=== PATIENT | female | born 1955 | race African-American/Black ===

== ENCOUNTER 2016-08-02 09:29 | Day surgery (SDC) | payer BC ==
--- NOTE | 2016-07-27 10:33 | HISTORY AND PHYSICAL E ---
History and Physical NAME: SIVAN BRISENO : 1955 AGE: 61Y ADMITTED: 08/02/2016 ROOM: REFERRING PHYSICIAN: Dr. Carey HISTORY: The patient is known to me. I saw her in 2010. Colonoscopy shows no polyps and mild external hemorrhoids. Now she is for upper scope. I did colonoscopy in 2010, at that time referred by Dr. James Fried. The patient did have colonoscopy. REVIEW OF SYSTEMS: CARDIAC: Hypertension. She does have reflux. PAST SURGICAL HISTORY: 1. Cholecystectomy. 2. Oophorectomy. 3. Tubal ligation. SOCIAL HISTORY: She does not smoke and does not drink. PHYSICAL EXAMINATION: VITAL SIGNS: Blood pressure 130/80, pulse 80, respirations 18, temp 98. HEENT: Normal. NECK: Supple. LUNGS: Clear. ABDOMEN: Soft. NEUROLOGIC: Negative. PAST MEDICAL HISTORY: I saw the patient again in 2010 with epigastric abdominal pain. Upper scope showed active chronic gastritis, H. pylori positive. CONCLUSIONS: Upper scope is showing gastritis, H. pylori positive. At this time, the patient is for upper endoscopy. She does have gastric polyp, gastritis, esophagitis, and duodenitis and continues to have H. pylori positive. So conclusion is upper scope with H. pylori, gastritis. The patient was treated with Pylera on 04/27/2015; a course of 10 days Pylera was given. At this time the patient is for upper scope. DICTATING PHYSICIAN: LUCY CARLSON M.D. [id number] PHY#: [id number] ID: [id number] JOB#: [id number] ACCT: [id number] cc:PHILIP ACREY M.D., MAHMOUD M.D. >
[~2016-08-02 09:29] MED LIST: EPINEPHRINE INJ 1 MG/10 ML DISP.SYRIN ONE; FLUMAZENIL INJ 0.5 MG/5 ML VIAL IV ONE; GLYCOPYRROLATE INJ 0.4 MG/2 ML VIAL ONE; NALOXONE HCL INJ/PF 0.4 MG/1 ML SDV ONE; ONDANSETRON HCL INJ/PF 4 MG/2 ML SDV ONE; PROMETHAZINE HCL INJ 25 MG/1 ML VIAL ONE
[2016-08-02] MEDS: MIDAZOLAM 2 MG/2 ML INJ ONE ×3 (10:10→10:16)
[2016-08-02] MEDS: FENTANYL CITRATE INJ/PF 100 MCG/2 ML AMPUL ONE ×2 (10:12→10:18)
[2016-08-02 11:19] LABS: ABSOLUTE EOSINOPHILS # (AUTO) 0.1 10^3/uL (0.0-0.6); ABSOLUTE MONOCYTES (AUTO) 0.5 10^3/uL (0.1-1.4); ABSOLUTE NEUT (AUTO) 2.6 10^3/uL (1.7-8.2); BASOPHILS % (AUTO) 0.8 % (0-2); EOSINOPHILS % (AUTO) 2.5 % (0-6); HEMATOCRIT 33.9 % (36.0-47.0); HEMOGLOBIN 11.1 g/dL (12.0-15.5); HGB HCT DIFFERENCE -0.6; LYMPHOCYTES % (AUTO) 24.5 % (13-45); MEAN CORPUSCULAR HEMOGLOBIN 28.5 pg (27.0-33.4); MEAN CORPUSCULAR HGB CONC 32.8 g/dL (32.0-36.0); MEAN CORPUSCULAR VOLUME 87 fl (80-97); MONOCYTES % (AUTO) 12.1 % (3-13); RED BLOOD COUNT 3.92 10^6/uL (3.72-5.28); SEGMENTED NEUTROPHILS % (AUTO) 60.1 % (42-78); WHITE BLOOD COUNT 4.3 10^3/uL (4.0-10.5)
[2016-08-02 11:20] VITALS: BP 107/72
--- NOTE | 2016-08-02 15:21 | DISCHARGE SUMMARY E ---
Discharge Summary NAME: SIVAN BRISENO : 1955 AGE: 61Y ADMITTED: 08/02/2016 DISCHARGED: 08/02/2016 HISTORY: The patient is a 61-year-old female who has a history of H. pylori, gastritis, underwent upper endoscopy today showing no ulcers, no malignancy. She did have mild esophagitis, mild gastritis, mild duodenitis. Gastric biopsy obtained for followup history of H. pylori. Patient did have colonoscopy in 2010 that shows no polyps, mild external hemorrhoids. DISCHARGE PLAN: Soft diet. Awaiting biopsy results. Patient did receive treatment for H. pylori with Pylera on 04/27/2015. Today, underwent upper endoscopy, which shows no ulcers, no malignancy. Hold aspirin, nonsteroidal. Followup office visit in the next few days. DICTATING PHYSICIAN: LUCY CARLSON M.D. [id number] PHY#: [id number] ID: [id number] JOB#: [id number] ACCT: [id number] cc:PHILIP CAREY M.D., MAHMOUD M.D. >
--- NOTE | 2016-08-02 15:22 | OPERATIVE REPORT E ---
Operative Report NAME: SIVAN BRISENO : 1955 AGE: 61Y DATE OF SURGERY: 08/02/2016 ROOM: PREOPERATIVE DIAGNOSES: 1. Gastritis. 2. Abdominal pain. 3. History of H. pylori. POSTOPERATIVE DIAGNOSES: 1. Gastritis. 2. Mild esophagitis. 3. Mild duodenitis. PROCEDURE: 1. Esophagoscopy. 2. Gastroscopy. 3. Duodenoscopy. SURGEON: LUCY CARLSON M.D. ANESTHESIA: Versed 4 and fentanyl 100. TISSUE REMOVED OR ALTERED: Gastric biopsy. DESCRIPTION OF PROCEDURE: Baby scope passed under guided vision. No difficulties. Esophagoscopy junction at 36 cm. Mild esophagitis. Gastroscopy: Diffuse mild gastritis. Biopsy obtained for H. pylori. Duodenoscopy: Mild duodenitis. CONCLUSIONS: 1. No ulcers. No bleeding. 2. Mild gastritis. 3. History of H. pylori. 4. Mild esophagitis. 5. Mild duodenitis. Patient tolerated procedure well. Discharged to her room in stable condition. DICTATING PHYSICIAN: LUCY CARLSON M.D. [id number] PHY#: [id number] ID: [id number] JOB#: [id number] ACCT: [id number] cc:PHILIP CAREY M.D., MAHMOUD M.D. >
== END 2016-08-02 11:40 | disposition home or self-care (01) ==
LOC: END 09:29
PROVIDERS: ATTEND Specialist
PROC: 0DB68ZX Excision of Stomach, Via Natural or Artificial Opening Endoscopic, Diagnostic (ICD-10-PCS; principal; 2016-08-02 10:00)
DX: K21.9 Gastro-esophageal reflux disease without esophagitis (principal); K29.70 Gastritis, unspecified, without bleeding; K29.50 Unspecified chronic gastritis without bleeding; B96.81 Helicobacter pylori [H. pylori] as the cause of diseases classified elsewhere; K29.80 Duodenitis without bleeding; I10 Essential (primary) hypertension
CPT/HCPCS: 43239; 36415; 85025; 88342 ×2; 88305 ×2; J2250; J3010; J2405; J0171; J2310; J2550; J3490

== ENCOUNTER → 2016-11-09 | Outpatient (CLI) | payer BC | LOC: WI 12:50 | PROVIDERS: ATTEND Internal Medicine | DX: R92.0 Mammographic microcalcification found on diagnostic imaging of breast (principal) | CPT/HCPCS: G0206-52 ==

== ENCOUNTER → 2016-11-16 | Day surgery (SDC) | payer BC ==
[~2016-11-16] MED LIST changes: -EPINEPHRINE INJ 1 MG/10 ML DISP.SYRIN ONE; -FLUMAZENIL INJ 0.5 MG/5 ML VIAL IV ONE; -GLYCOPYRROLATE INJ 0.4 MG/2 ML VIAL ONE; +LIDOCAINE 1%/EPINEPHRINE INJ 20 ML VIAL ONE; -NALOXONE HCL INJ/PF 0.4 MG/1 ML SDV ONE; -ONDANSETRON HCL INJ/PF 4 MG/2 ML SDV ONE; -PROMETHAZINE HCL INJ 25 MG/1 ML VIAL ONE
== END ==
LOC: RAD 09:58 → EDSTATUS 14:29
PROVIDERS: ATTEND Surgery
PROC: 08RJ3JZ Replacement of Right Lens with Synthetic Substitute, Percutaneous Approach (ICD-10-PCS; principal; 2016-11-16)
DX: N60.11 Diffuse cystic mastopathy of right breast (principal); R92.0 Mammographic microcalcification found on diagnostic imaging of breast; M19.90 Unspecified osteoarthritis, unspecified site; Z96.653 Presence of artificial knee joint, bilateral; I10 Essential (primary) hypertension; Z87.891 Personal history of nicotine dependence; Z79.899 Other long term (current) drug therapy
CPT/HCPCS: 88342 ×2; 88341 ×2; 88305 ×2; 19081; J3490

== ENCOUNTER 2017-03-13 11:54 | Emergency (ER) | payer BC ==
--- NOTE | 2017-03-13 13:16 | ER Document Report ---
HPI - HPI Patient complains to provider of: dental pain Onset: Other - 3 days Onset/Duration: Persistent Quality of pain: Achy Pain Level: 4 Context: Patient presents complaining of dental pain to right lower jaw for the past 3 days. Patient does have a dentist and did see them regarding this recently. Patient states that they have her under treatment plan and are wanting to fix other teeth prior to fixing this tooth. Patient denies any fever or facial swelling. Patient does complain of some right ear pain and decreased hearing to her right ear. Associated Symptoms: Earache, Other - dental pain. denies: Fever Exacerbated by: Denies Relieved by: Denies Similar symptoms previously: Yes Recently seen / treated by doctor: No - ROS ROS below otherwise negative: Yes Systems Reviewed and Negative: Yes All other systems reviewed and negative - CONSTITUTIONAL Constitutional: DENIES: Fever, Chills - EENT EENT: REPORTS: Ear Pain Notes: dental pain - CARDIOVASCULAR Cardiovascular: DENIES: Chest pain - RESPIRATORY Respiratory: DENIES: Coughing - GASTROINTESTINAL Gastrointestinal: DENIES: Nausea, Patient vomiting - REPRODUCTIVE Reproductive: DENIES: : - MUSCULOSKELETAL Musculoskeletal: DENIES: Back Pain, Neck Pain - DERM Skin Color: Normal Skin Problems: None Past Medical History - General Information source: Patient - Social History Smoking Status: Never Smoker Chew tobacco use (# tins/day): No Frequency of alcohol use: None Drug Abuse: None Occupation: house keeping Family History: Reviewed & Not Pertinent Patient has suicidal ideation: No Patient has homicidal ideation: No - Past Medical History Cardiac Medical History: Reports: Hx Hypertension Denies: Hx Atrial Fibrillation, Hx Congestive Heart Failure, Hx Coronary Artery Disease, Hx Heart Attack, Hx Hypercholesterolemia, Hx Peripheral Vascular Disease, Hx Heart Murmur Pulmonary Medical History: Denies: Hx Asthma, Hx Bronchitis, Hx COPD, Hx Pneumonia Neurological Medical History: Denies: Hx Cerebrovascular Accident, Hx Seizures Renal/ Medical History: Reports: Hx Ovarian Cysts - s/p RT S&O. Denies: Hx End Stage Renal Disease, Hx Kidney Stones, Hx Peritoneal Dialysis, Hx Pelvic Inflammatory Disease Malignancy Medical History: Denies: Hx Breast Cancer, Hx Cervical Cancer, Hx Ovarian Cancer Musculoskeltal Medical History: Reports Hx Arthritis, Denies Hx Fibromyalgia, Denies Hx Muscular Dystrophy Traumatic Medical History: Denies: Hx Fractures Past Surgical History: Reports: Hx Cholecystectomy, Hx Orthopedic Surgery - bilateral knees, Hx Tonsillectomy - as child, Hx Tubal Ligation. Denies: Hx Appendectomy, Hx Bowel Surgery, Hx Section, Hx Coronary Artery Bypass Graft, Hx Gastric Bypass Surgery, Hx Herniorrhaphy, Hx Hysterectomy, Hx Mastectomy, Hx Pacemaker - Immunizations Hx Diphtheria, Pertussis, Tetanus Vaccination: Yes Hx Pneumococcal Vaccination: 04/09/14 Vertical Provider Document - CONSTITUTIONAL Agree With Documented VS: Yes Exam Limitations: No Limitations General Appearance: WD/WN, No Apparent Distress - INFECTION CONTROL TRAVEL OUTSIDE OF THE [place] IN LAST 30 DAYS: No - HEENT HEENT: Atraumatic, Normocephalic Mouth Diagram: 1 - Tenderness, dental decay, no gingival abscess, no sublingual or submental swelling Notes: Right ear cerumen impaction, no mastoid tenderness or swelling - NECK Neck: Normal Inspection, Supple. negative: Lymphadenopathy-Left, Lymphadenopathy-Right - RESPIRATORY Respiratory: Breath Sounds Normal, No Respiratory Distress O2 Sat by Pulse Oximetry: 100 - CARDIOVASCULAR Cardiovascular: Regular Rate, Regular Rhythm, No Murmur - BACK Back: Normal Inspection - MUSCULOSKELETAL/EXTREMETIES Musculoskeletal/Extremeties: PRATIMA CHASE - NEURO Level of Consciousness: Awake, Alert, Appropriate Motor/Sensory: No Motor Deficit - DERM Integumentary: Warm, Dry, No Rash Course - Re-evaluation Re-evalutation: 03/13/17 13:14 Patient with normal right external auditory canal and right TM after irrigation. Patient tolerated well. Patient states she cannot hear out of her right ear. - Vital Signs Vital signs: Temp Pulse Resp BP Pulse Ox 98.5 F 86 18 100 03/13/17 11:57 03/13/17 11:57 03/13/17 11:57 03/13/17 11:57 Discharge - Discharge Clinical Impression: Impacted cerumen of right ear, Pain, dental Condition: Stable Disposition: HOME, SELF-CARE Instructions: Cerumen Impaction (OM), Oral Narcotic Medication (OM), Penicillin V K (OM), Toothache (OM) Additional Instructions: Return immediately for any new or worsening symptoms Followup with your primary care provider, call tomorrow to make a followup appointment Follow-up with your dental care provider for recheck Prescriptions: Hydrocodone/Acetaminophen [[place] 5-325 Tablet] 1 each PO Q4 PRN #15 tablet PRN Reason: Penicillin V Potassium [Penicillin Vk 500 mg Tablet] 500 mg PO BID #20 tablet Referrals: PHILIP CAREY MD [Primary Care Provider] - Follow up as needed
[2017-03-13 13:26] VITALS: BP 150/76
== END 2017-03-13 13:26 | disposition home or self-care (01) ==
LOC: ER 11:54
DX: K02.9 Dental caries, unspecified (principal); H61.21 Impacted cerumen, right ear; K08.89 Other specified disorders of teeth and supporting structures; I10 Essential (primary) hypertension
CPT/HCPCS: 99282

== ENCOUNTER 2017-06-08 09:25 | Day surgery (SDC) | payer BC ==
[~2017-06-08 09:25] MED LIST changes: +EPINEPHRINE INJ 1 MG/10 ML DISP.SYRIN ONE; +FENTANYL CITRATE INJ/PF 100 MCG/2 ML AMPUL ONE; +FLUMAZENIL INJ 0.5 MG/5 ML VIAL ONE; +GLUCAGON,HUMAN RECOMB 1 MG INJ ONE; +GLYCOPYRROLATE INJ 0.4 MG/2 ML VIAL ONE; -LIDOCAINE 1%/EPINEPHRINE INJ 20 ML VIAL ONE; +NALOXONE HCL INJ/PF 0.4 MG/1 ML SDV ONE; +ONDANSETRON HCL INJ/PF 4 MG/2 ML SDV ONE
[2017-06-08] MEDS: MIDAZOLAM 2 MG/2 ML INJ ONE ×2 (10:34→10:45)
--- NOTE | 2017-06-08 11:51 | OPERATIVE REPORT E ---
Operative Report NAME: SIVAN BRISENO : 1955 AGE: 62Y DATE OF SURGERY: 06/08/2017 ROOM: PREOPERATIVE DIAGNOSIS: COLON SCREENING. POSTOPERATIVE DIAGNOSIS: Small benign-looking 3 mm sigmoid polyp. PROCEDURE: Colonoscopy to the cecum. SURGEON: LUCY CARLSON M.D. TISSUE REMOVED OR ALTERED: Biopsy polyp, rectosigmoid junction. FINDINGS: Colonoscopy was difficult but successful; very redundant. She did have previous cholecystectomy. RECTAL: Examination essentially normal. SIGMOID DESCENDING COLON: Small sessile polyps, 3 mm, removed by 2 biopsies. DESCENDING COLON: Normal. TRANSVERSE COLON: Normal. ASCENDING CECUM: Moderate amount of liquid stool; no gross abnormalities. Scope withdrawn cecum, ascending, transverse, descending, sigmoid, all the way to the rectum. CONCLUSION: 1. BENIGN LOOKING POLYP, SIGMOID; REMOVED BY 2 BIOPSIES. 2. REDUNDANT COLON. PLAN: 1. Hold Mobic, nonsteroidal 1 week. 2. Baseline CBC. 3. Soft diet. 4. Awaiting biopsy. 5. Consider followup colonoscopy 2 years, pending biopsy results. DICTATING PHYSICIAN: LUCY CARLSON M.D. [id number] [id number] PHY#: [id number] ID: [id number] JOB#: [id number] ACCT: [id number] cc:PHILIP CAREY M.D., MAHMOUD M.D. >
--- NOTE | 2017-06-08 11:52 | DISCHARGE SUMMARY E ---
Discharge Summary NAME: SIVAN BRISENO : 1955 AGE: 62Y ADMITTED: 06/08/2017 DISCHARGED: 06/08/2017 HISTORY: A 62-year-old female underwent colon screening today showing a 3 mm sigmoid polyp removed by biopsy. DISCHARGE PLAN: Soft diet. Hold aspirin. Awaiting biopsy. Consider followup colonoscopy 2 years. Pending biopsy results. FINAL DIAGNOSES: 1. A 3 mm sigmoid polyp. 2. Screening colonoscopy. DICTATING PHYSICIAN: LUCY CARLSON M.D. [id number] [id number] PHY#: [id number] ID: [id number] JOB#: [id number] ACCT: [id number] cc:PHILIP CAREY M.D., MAHMOUD M.D. >
[2017-06-08 12:14] LABS: ABSOLUTE EOSINOPHILS # (AUTO) 0.1 10^3/uL (0.0-0.6); ABSOLUTE LYMPHOCYTES (AUTO) 1.4 10^3/uL (0.5-4.7); ABSOLUTE MONOCYTES (AUTO) 0.6 10^3/uL (0.1-1.4); ABSOLUTE NEUT (AUTO) 2.6 10^3/uL (1.7-8.2); BASOPHILS % (AUTO) 0.8 % (0-2); EOSINOPHILS % (AUTO) 2.9 % (0-6); HEMATOCRIT 38.6 % (36.0-47.0); HEMOGLOBIN 13.2 g/dL (12.0-15.5); LYMPHOCYTES % (AUTO) 29.5 % (13-45); MEAN CORPUSCULAR HEMOGLOBIN 30.4 pg (27.0-33.4); MEAN CORPUSCULAR HGB CONC 34.2 g/dL (32.0-36.0); MEAN CORPUSCULAR VOLUME 89 fl (80-97); RED BLOOD COUNT 4.35 10^6/uL (3.72-5.28); RED CELL DISTRIBUTION WIDTH 14.3 % (11.5-14.0); SEGMENTED NEUTROPHILS % (AUTO) 53.8 % (42-78); WHITE BLOOD COUNT 4.8 10^3/uL (4.0-10.5)
[2017-06-08] MEDS ORDERED: NALOXONE HCL INJ/PF 0.4 MG/1 ML SDV ONE (13:04)
[2017-06-08] MEDS ORDERED: SIMETHICONE 80 MG TAB.CHEW ONE (13:16)
[2017-06-08] MEDS ORDERED: NORMAL SALINE 1000 ML 1,000 ML IV PRN (14:06)
[2017-06-08 15:15] LABS: ANION GAP 15 (5-19); BLOOD UREA NITROGEN 12 mg/dL (7-20); CALCIUM 9.3 mg/dL (8.4-10.2); CARBON DIOXIDE 26 mmol/L (22-30); CHLORIDE 100 mmol/L (98-107); CREATININE RESULT 0.74 mg/dL (0.52-1.25); GLUCOSE 68 mg/dL (75-110); POTASSIUM 3.8 mmol/L (3.6-5.0); SODIUM 140.9 mmol/L (137-145)
[2017-06-08 20:45] LABS: ABSOLUTE BASOPHILS # (AUTO) 0.1 10^3/uL (0.0-0.2); ABSOLUTE EOSINOPHILS # (AUTO) 0.2 10^3/uL (0.0-0.6); ABSOLUTE LYMPHOCYTES (AUTO) 2.2 10^3/uL (0.5-4.7); ABSOLUTE MONOCYTES (AUTO) 0.6 10^3/uL (0.1-1.4); ABSOLUTE NEUT (AUTO) 3.8 10^3/uL (1.7-8.2); BASOPHILS % (AUTO) 1.1 % (0-2); EOSINOPHILS % (AUTO) 2.2 % (0-6); HEMATOCRIT 39.2 % (36.0-47.0); HEMOGLOBIN 13.3 g/dL (12.0-15.5); HGB HCT DIFFERENCE 0.7; LYMPHOCYTES % (AUTO) 32.6 % (13-45); MEAN CORPUSCULAR HEMOGLOBIN 30.4 pg (27.0-33.4); MEAN CORPUSCULAR HGB CONC 33.9 g/dL (32.0-36.0); MEAN CORPUSCULAR VOLUME 90 fl (80-97); MONOCYTES % (AUTO) 8.8 % (3-13); RED BLOOD COUNT 4.38 10^6/uL (3.72-5.28); RED CELL DISTRIBUTION WIDTH 14.4 % (11.5-14.0); SEGMENTED NEUTROPHILS % (AUTO) 55.3 % (42-78); WHITE BLOOD COUNT 6.9 10^3/uL (4.0-10.5)
[2017-06-09 08:08] VITALS: BP 122/77
--- NOTE | 2017-06-09 13:51 | DISCHARGE SUMMARY E ---
Discharge Summary NAME: SIVAN BRISENO : 1955 AGE: 62Y ADMITTED: 06/08/2017 DISCHARGED: 06/09/2017 HISTORY: A 62-year-old female underwent colonoscopy yesterday. I was called that she is hypotensive. Her blood pressure was 90 systolic. We gave her normal saline and kept her overnight observation. This morning, her blood pressure systolic is 120. She is stable. No abdominal pain. DISCHARGE PLAN: Soft diet. Continue all medications. Followup office visit in the next few days. Awaiting biopsy. Patient to see us in the office in the next few days. FINAL DIAGNOSES: Patient underwent colonoscopy showing colon polyp. Recommend a followup colonoscopy 2 years. She underwent colon screening yesterday, and she underwent biopsy. PROCEDURE: Colonoscopy. FINAL DIAGNOSIS: Colon polyp. Patient observed 24 hours for hypotension which resolved with IV normal saline. DICTATING PHYSICIAN: LUCY CARLSON M.D. [id number] PHY#: [id number] ID: [id number] JOB#: [id number] ACCT: [id number] cc:LUCY CARLSON M.D. >
--- NOTE | 2017-06-22 15:14 | HISTORY AND PHYSICAL E ---
History and Physical NAME: SIVAN BRISENO : 1955 AGE: 62Y ADMITTED: 06/08/2017 ROOM: 537 CHIEF COMPLAINT: Colon screening. REFERRING PHYSICIAN: Dr. Gould. HISTORY OF PRESENT ILLNESS: The patient presented on 06/08/2017. The patient presented at this time for colon screening. PAST SURGICAL HISTORY: Cholecystectomy. ALLERGIES: Negative. SOCIAL HISTORY: She does not smoke, does not drink. She works at [employer]. REVIEWING OF SYSTEMS: CARDIAC: Hypertension. PHYSICAL EXAMINATION: VITAL SIGNS: Blood pressure is 130/80, pulse 80, respirations 18, temperature is 98. HEAD, EYES, EARS, NOSE, THROAT: Normal. NECK: Supple. LUNGS: Clear. ABDOMEN: Soft. NEUROLOGIC: Exam negative. CONCLUSION: Colon screening. PLAN: Colon exam, colonoscopy, admit on 06/08/2017 with planned colon screening. DICTATING PHYSICIAN: LUCY CARLSON M.D. [id number] [id number] PHY#: [id number] ID: [id number] JOB#: [id number] ACCT: [id number] cc:Kurt VITAL M.D. >
== END 2017-06-09 09:05 | disposition home or self-care (01) ==
LOC: END 09:25 → 5 09:25 → END 06-09 09:05
PROVIDERS: ATTEND Specialist
PROC: 0DBN8ZX Excision of Sigmoid Colon, Via Natural or Artificial Opening Endoscopic, Diagnostic (ICD-10-PCS; principal; 2017-06-09)
DX: Z12.11 Encounter for screening for malignant neoplasm of colon (principal); K63.5 Polyp of colon; K63.89 Other specified diseases of intestine; I95.9 Hypotension, unspecified
CPT/HCPCS: 45380; 36415; 85025; 80048; 88305 ×2; J2250; J3010; J1610; J2405; J0171; J2310; J3490

== ENCOUNTER 2018-08-26 13:17 | Emergency (ER) | payer BC ==
[2018-08-26] MEDS ORDERED: NORMAL SALINE 1000 ML 1,000 ML IV ONE (14:43)
[2018-08-26] MEDS ORDERED: LIDOCAINE 2% VISCOUS SOLN 20 ML UDCUP PO ONE (14:53)
[2018-08-26] MEDS ORDERED: MAG HYDROX/AL HYDROX/SIMETH SUSP 30 ML UDCUP PO ONE (14:53)
[2018-08-26] MEDS ORDERED: METOCLOPRAMIDE HCL ORAL SOLN 10 MG/10 ML UDCUP PO ONE (14:53)
--- NOTE | 2018-08-26 15:35 | ER Document Report ---
Entered by TAMIR LAY SCRIBE 08/26/18 1453 Acting as scribe for:BENITA GONZÁLES DO ED Medical Screen (RME) - General Chief Complaint: Abdominal Pain Stated Complaint: ABDOMINAL PAIN Time Seen by Provider: 08/26/18 14:30 Primary Care Provider: PHILIP CAREY MD [Primary Care Provider] - Follow up as needed Mode of Arrival: Ambulatory Information source: Patient Notes: Patient is a 63 year old female presenting to the emergency department complaining of multiple symptoms including epigastric abdominal pain and diarrhea onset yesterday. Patient states she has previously had an endoscopy and was found to have H.pylori bacteria further stating her current symptoms feels similar. She states she noticed tarry dark stool yesterday as well. She denies any vomiting. She is currently taking HCTZ and diclofenac. Did not take her hydrochlorothiazide today due to her low blood pressure that she noticed at home. I have greeted and performed a rapid initial assessment of this patient. A comprehensive ED assessment and evaluation of the patient, analysis of test results and completion of the medical decision making process will be conducted by additional ED providers. GENERAL: Alert, interacts well. No acute distress. HEAD: Normocephalic, atraumatic. EYES: Pupils equal, round, and reactive to light. Extraocular movements intact. ENT: Oral mucosa moist, tongue midline. NECK: Full range of motion. Supple. Trachea midline. LUNGS: Clear to auscultation bilaterally, no wheezes, rales, or rhonchi. No respiratory distress. HEART: Regular rate and rhythm. No murmurs, gallops, or rubs. ABDOMEN: Soft, epigastric tenderness to palpation. Non-distended. Bowel sounds present in all 4 quadrants. EXTREMITIES: Moves all 4 extremities spontaneously. NEUROLOGICAL: Alert and oriented x3. Normal speech. PSYCH: Normal affect, normal mood. SKIN: Warm, dry, normal turgor. No rashes or lesions noted. TRAVEL OUTSIDE OF THE [place] IN LAST 30 DAYS: No - Related Data Allergies/Adverse Reactions: oxycodone [Oxycodone] Allergy (Severe, Verified 08/26/18 13:20) facial swelling/rash Past Medical History - Social History Chew tobacco use (# tins/day): No Frequency of alcohol use: None Drug Abuse: None - Past Medical History Cardiac Medical History: Reports: Hx Hypertension Denies: Hx Atrial Fibrillation, Hx Congestive Heart Failure, Hx Coronary Artery Disease, Hx Heart Attack, Hx Hypercholesterolemia, Hx Peripheral Vascular Disease, Hx Heart Murmur Pulmonary Medical History: Denies: Hx Asthma, Hx Bronchitis, Hx COPD, Hx Pneumonia Neurological Medical History: Denies: Hx Cerebrovascular Accident, Hx Seizures Renal/ Medical History: Reports: Hx Ovarian Cysts - s/p RT S&O. Denies: Hx End Stage Renal Disease, Hx Kidney Stones, Hx Peritoneal Dialysis, Hx Pelvic Inflammatory Disease Malignancy Medical History: Denies: Hx Breast Cancer, Hx Cervical Cancer, Hx Ovarian Cancer Musculoskeltal Medical History: Reports Hx Arthritis - RA, Denies Hx Fibromyalgia, Denies Hx Muscular Dystrophy Traumatic Medical History: Denies: Hx Fractures Past Surgical History: Reports: Hx Cholecystectomy, Hx Orthopedic Surgery - bilateral tkr right carpel tunnel, Hx Tonsillectomy - as child, Hx Tubal Ligation. Denies: Hx Appendectomy, Hx Bowel Surgery, Hx Section, Hx Coronary Artery Bypass Graft, Hx Gastric Bypass Surgery, Hx Herniorrhaphy, Hx Hysterectomy, Hx Mastectomy, Hx Pacemaker - Immunizations Hx Diphtheria, Pertussis, Tetanus Vaccination: Yes History of Influenza Vaccine for 04/2017 - 09/2017 Season: Yes Influenza Administration Date for 04/2017 - 09/2017 Season: 04/09/17 Physical Exam - Vital signs Vitals: Temp Pulse Resp BP Pulse Ox 97.9 F 86 18 100/67 100 08/26/18 13:45 08/26/18 13:45 08/26/18 13:45 08/26/18 13:45 08/26/18 13:45 Course - Vital Signs Vital signs: Temp Pulse Resp BP Pulse Ox 97.9 F 86 18 100/67 100 08/26/18 13:45 08/26/18 13:45 08/26/18 13:45 08/26/18 13:45 08/26/18 13:45 Doctor's Discharge - Discharge Referrals: PHILIP CAREY MD [Primary Care Provider] - Follow up as needed I personally performed the services described in the documentation, reviewed and edited the documentation which was dictated to the scribe in my presence, and it accurately records my words and actions.
--- NOTE | 2018-08-26 15:39 | RADIOLOGY REPORT (SQ) ---
EXAM DESCRIPTION: CHEST 2 VIEWS COMPLETED DATE/TIME: 08/26/2018 3:13 pm REASON FOR STUDY: hypotension COMPARISON: Chest x-ray 03/17/2016, 12/22/2017. EXAM PARAMETERS: NUMBER OF VIEWS: two views TECHNIQUE: Digital Frontal and Lateral radiographic views of the chest acquired. RADIATION DOSE: NA LIMITATIONS: none FINDINGS: LUNGS AND PLEURA: No consolidation, pneumothorax or pleural effusion. MEDIASTINUM AND HILAR STRUCTURES: No masses or contour abnormalities. HEART AND VASCULAR STRUCTURES: Heart normal size. No evidence for failure. BONES: Degenerative changes at the spine. HARDWARE: None in the chest. IMPRESSION: No acute radiographic findings in the chest. TECHNICAL DOCUMENTATION: JOB ID: [id number] [employer]- All Rights Reserved Reading location - IP/workstation name: [email or web address]
[2018-08-26 16:20] LABS: VENOUS BLOOD BASE EXCESS -0.3 mmol/L; VENOUS BLOOD HCO3 25.4 mmol/L (20-32); VENOUS BLOOD PCO2 45.6 mmHg (35-63); VENOUS BLOOD PH 7.36 (7.30-7.42)
[2018-08-26 16:27] LABS: ABSOLUTE EOSINOPHILS # (AUTO) 0.1 10^3/uL (0.0-0.6); ABSOLUTE LYMPHOCYTES (AUTO) 1.3 10^3/uL (0.5-4.7); ABSOLUTE MONOCYTES (AUTO) 0.5 10^3/uL (0.1-1.4); ABSOLUTE NEUT (AUTO) 2.1 10^3/uL (1.7-8.2); BASOPHILS % (AUTO) 0.4 % (0-2); EOSINOPHILS % (AUTO) 2.2 % (0-6); HEMATOCRIT 42.1 % (36.0-47.0); HEMOGLOBIN 14.2 g/dL (12.0-15.5); LYMPHOCYTES % (AUTO) 32.6 % (13-45); MEAN CORPUSCULAR HEMOGLOBIN 30.1 pg (27.0-33.4); MEAN CORPUSCULAR HGB CONC 33.7 g/dL (32.0-36.0); MEAN CORPUSCULAR VOLUME 89 fl (80-97); MONOCYTES % (AUTO) 12.6 % (3-13); PLATELET COUNT 207 10^3/uL (150-450); RED BLOOD COUNT 4.72 10^6/uL (3.72-5.28); RED CELL DISTRIBUTION WIDTH 13.9 % (11.5-14.0); SEGMENTED NEUTROPHILS % (AUTO) 52.2 % (42-78); TOTAL CELLS COUNTED % (AUTO) 100 %
[2018-08-26 16:40] LABS: ALANINE AMINOTRANSFERASE 84 U/L (9-52); ALBUMIN 4.4 g/dL (3.5-5.0); ALKALINE PHOSPHATASE 144 U/L (38-126); ANION GAP 10 (5-19); ASPARTATE AMINO TRANSFERASE 72 U/L (14-36); BILIRUBIN,DIRECT 0.4 mg/dL (0.0-0.4); BILIRUBIN,TOTAL 0.9 mg/dL (0.2-1.3); BLOOD UREA NITROGEN 18 mg/dL (7-20); CALCIUM 9.3 mg/dL (8.4-10.2); CARBON DIOXIDE 25 mmol/L (22-30); CHLORIDE 104 mmol/L (98-107); GLUCOSE 87 mg/dL (75-110); LIPASE 70.8 U/L (23-300); POTASSIUM 3.5 mmol/L (3.6-5.0); SODIUM 139.1 mmol/L (137-145); TOTAL PROTEIN 7.3 g/dL (6.3-8.2)
--- NOTE | 2018-08-26 18:15 | EKG REPORT ---
SEVERITY:- BORDERLINE ECG - SINUS RHYTHM PROBABLE LEFT ATRIAL ABNORMALITY : Confirmed by: Ana Rosa Lazcano MD 26-Aug-2018 18:14:35
[2018-08-26 18:23] LABS: APPEARANCE,URINE CLOUDY; BILIRUBIN,URINE NEGATIVE (NEGATIVE); COLOR,URINE AMBER; GLUCOSE, URINE NEGATIVE (NEGATIVE); KETONES,URINE 20 mg/dL (NEGATIVE); LEUKOCYTE ESTERASE,URINE MODERATE (NEGATIVE); NITRITE,URINE NEGATIVE (NEGATIVE); PROTEIN,URINE NEGATIVE (NEGATIVE); URINE SPECIFIC GRAVITY 1.027
[2018-08-26] MEDS ORDERED: CEPHALEXIN 500 MG CAPSULE PO ONE (18:43)
--- NOTE | 2018-08-26 18:52 | ER Document Report ---
ED General - General Chief Complaint: Abdominal Pain Stated Complaint: ABDOMINAL PAIN Time Seen by Provider: 08/26/18 14:30 Primary Care Provider: PHILIP CAREY MD [Primary Care Provider] - Follow up as needed Mode of Arrival: Ambulatory Notes: Patient is a 63-year-old female who presents to the emergency department with complaints of nausea with diarrhea. She also reports some epigastric pain, states she has a history of H. pylori. States the pain she felt as well as the symptoms felt similar. She does report dark stools. Denies any fevers or vomiting. Patient is alert, oriented in no distress is noted at time of assessment. TRAVEL OUTSIDE OF THE [place] IN LAST 30 DAYS: No - Related Data Allergies/Adverse Reactions: oxycodone [Oxycodone] Allergy (Severe, Verified 08/26/18 13:20) facial swelling/rash Past Medical History - General Information source: Patient - Social History Smoking Status: Unknown if Ever Smoked Chew tobacco use (# tins/day): No Frequency of alcohol use: None Drug Abuse: None Family History: Reviewed & Not Pertinent Patient has suicidal ideation: No Patient has homicidal ideation: No - Past Medical History Cardiac Medical History: Reports: Hx Hypertension Denies: Hx Atrial Fibrillation, Hx Congestive Heart Failure, Hx Coronary Artery Disease, Hx Heart Attack, Hx Hypercholesterolemia, Hx Peripheral Vascular Disease, Hx Heart Murmur Pulmonary Medical History: Denies: Hx Asthma, Hx Bronchitis, Hx COPD, Hx Pneumonia Neurological Medical History: Denies: Hx Cerebrovascular Accident, Hx Seizures Renal/ Medical History: Reports: Hx Ovarian Cysts - s/p RT S&O. Denies: Hx End Stage Renal Disease, Hx Kidney Stones, Hx Peritoneal Dialysis, Hx Pelvic Inflammatory Disease Malignancy Medical History: Denies: Hx Breast Cancer, Hx Cervical Cancer, Hx Ovarian Cancer Musculoskeletal Medical History: Reports Hx Arthritis - RA, Denies Hx Fibromyalgia, Denies Hx Muscular Dystrophy Traumatic Medical History: Denies: Hx Fractures Past Surgical History: Reports: Hx Cholecystectomy, Hx Orthopedic Surgery - bi lateral tkr right carpel tunnel, Hx Tonsillectomy - as child, Hx Tubal Ligation. Denies: Hx Appendectomy, Hx Bowel Surgery, Hx Section, Hx Coronary Artery Bypass Graft, Hx Gastric Bypass Surgery, Hx Herniorrhaphy, Hx Hysterectomy, Hx Mastectomy, Hx Pacemaker - Immunizations Hx Diphtheria, Pertussis, Tetanus Vaccination: Yes Hx Pneumococcal Vaccination: 04/09/14 Review of Systems - Review of Systems Constitutional: denies: Chills, Fever EENT: No symptoms reported Cardiovascular: No symptoms reported Respiratory: No symptoms reported Gastrointestinal: Diarrhea, Nausea, Other - Dark stools. denies: Vomiting, Constipation, Blood streaked bowels Genitourinary: No symptoms reported Female Genitourinary: No symptoms reported Musculoskeletal: No symptoms reported Skin: No symptoms reported Hematologic/Lymphatic: No symptoms reported Neurological/Psychological: No symptoms reported Physical Exam - Vital signs Vitals: Temp Pulse Resp BP Pulse Ox 97.9 F 86 18 100/67 100 08/26/18 13:45 08/26/18 13:45 08/26/18 13:45 08/26/18 13:45 08/26/18 13:45 - Notes Notes: PHYSICAL EXAMINATION: GENERAL: Well-appearing, well-nourished and in no acute distress. HEAD: Atraumatic, normocephalic. EYES: Pupils equal round and reactive to light, extraocular movements intact, conjunctiva are normal. ENT: Nares patent, oropharynx clear without exudates. Moist mucous membranes. NECK: Normal range of motion, supple without lymphadenopathy LUNGS: Breath sounds clear to auscultation bilaterally and equal. No wheezes rales or rhonchi. HEART: Regular rate and rhythm without murmurs ABDOMEN: Soft, nontender, nondistended abdomen. No guarding, no rebound. No masses appreciated. Female : No CVA tenderness. Musculoskeletal: Normal range of motion, no pitting or edema. No cyanosis. NEUROLOGICAL: Cranial nerves grossly intact. Normal speech, normal gait. Normal sensory, motor exams PSYCH: Normal mood, normal affect. SKIN: Warm, Dry, normal turgor, no rashes or lesions noted. Course - Re-evaluation Re-evalutation: Labs as recorded. Hemoccult is negative. Abdominal evaluation is unremarkable and patient's abdomen is soft, nontender with no guarding and no rebound. Physical examination is also completely unremarkable. Patient appears very comfortable. Patient does appear to have a urinary tract infection. Urine culture will be sent. Patient will be started on X for urinary tract infection. Patient verbalizes understanding of all test results and is agreeable to discharge home. Patient given strict ED return precautions. - Vital Signs Vital signs: Temp Pulse Resp BP Pulse Ox 97.9 F 73 18 106/67 98 08/26/18 19:03 08/26/18 19:03 08/26/18 19:03 08/26/18 19:03 08/26/18 19:03 - Laboratory Result Diagrams: 08/26/18 16:04 08/26/18 16:04 Laboratory results interpreted by me: 08/26/18 08/26/18 16:04 17:45 Potassium 3.5 L AST 72 H ALT 84 H Alkaline Phosphatase 144 H Urine Ketones 20 H Urine Urobilinogen 4.0 H Ur Leukocyte Esterase MODERATE H Discharge - Discharge Clinical Impression: Abdominal pain Qualifiers: Abdominal location: unspecified location Qualified Code(s): R10.9 - Unspecified abdominal pain Urinary tract infection Qualifiers: Urinary tract infection type: site unspecified Hematuria presence: without hematuria Qualified Code(s): N39.0 - Urinary tract infection, site not specified Condition: Stable Disposition: HOME, SELF-CARE Additional Instructions: URINARY TRACT INFECTION: Your evaluation indicates that you have a urinary tract infection. This is due to germs growing in the bladder. This is a common problem. This infection usually responds quickly to antibiotics. Your antibiotic should be taken exactly as prescribed. Drink plenty of fluids -- three to four quarts a day. Occasionally, a bladder anesthetic will be prescribed to help stop the feeling of urgency until the antibiotic has a chance to clear the infection. This may cause your urine to be dark orange. Certain urine infections require a culture. If the doctor obtained a culture, the results will be back in two days. You should call to see if a change in treatment is needed. A repeat urinalysis after you finish treatment is often recommended. The physician will let you know if further testing is required. Call the doctor if you develop fever, chills, flank pain, inability to urinate, or blood in the urine. ANTIBIOTIC THERAPY: You have been given an antibiotic prescription. It's important that you take all the medication, unless instructed otherwise by your physician. Failure to complete the entire course can result in relapse of your condition. Common side effects of antibiotics include nausea, intestinal cramping, or diarrhea. Women may develop vaginal yeast infections, and babies can get yeast (thrush) in the mouth following the use of antibiotics. Contact your physician if you develop significant side effects from this medication. Allergy to this antibiotic can result in hives, wheezing, faintness, or itching. If symptoms of allergy occur, stop the medication and call the doctor. CEPHALEXIN: The antibiotic you've been prescribed is a member of the cephalosporin class. This type of antibiotic covers a wide variety of infections, including those of the skin, lungs, and urinary tract. It's useful for staph infections. This antibiotic is slightly similar to the penicillin family. In rare cases, a person who is allergic to penicillin will also be allergic to this medication. If you have had a severe allergic reaction to penicillin, and have not taken this antibiotic since that time, notify your doctor. Antibiotics which cover many germs ("broad spectrum" antibiotics) are more likely to cause diarrhea or "yeast" infections. Women prone to vaginal yeast problems may suffer an attack after taking this antibiotic. In infants, oral thrush (white spots "stuck" on the cheek) or yeast diaper rash may result. See your doctor if these problems occur. Call at once if you develop itching, hives, shortness of breath, or lightheadedness. FOLLOW-UP CARE: If you have been referred to a physician for follow-up care, call the physicians office for an appointment as you were instructed or within the next two days. If you experience worsening or a significant change in your symptoms, notify the physician immediately or return to the Emergency Department at any time for re-evaluation. Your exam shows that you have urinary tract infection. Please take the antibiotics as prescribed. Drink plenty of fluids. Complete the entire course of antibiotics even if your symptoms have resolved. We have sent your urine down to the lab for culture, if there is any abnormal bacteria in this culture someone will call you in the next 48-72 hours. Please return to the emergency department if you develop worsening abdominal pain, persistent vomiting or develop a fever. We are happy to reevaluate you at any time. Please follow-up with your primary care provider in the next 2-3 days for follow-up. Prescriptions: Cephalexin [Cephalexin 500 MG Tablet] 1 tab PO BID #14 tablet Forms: Return to Work Referrals: PHILIP CAREY MD [Primary Care Provider] - Follow up as needed
[2018-08-26 19:07] VITALS: BP 106/67
[2018-08-26 19:10] LABS: INTERNATIONAL RATION (INR) 1.05; PROTHROMBIN TIME 14.2 SEC (11.4-15.4)
== END 2018-08-26 19:08 | disposition home or self-care (01) ==
LOC: ER 13:17
DX: N39.0 Urinary tract infection, site not specified (principal); R10.9 Unspecified abdominal pain; R11.0 Nausea; R19.7 Diarrhea, unspecified; R10.13 Epigastric pain; I10 Essential (primary) hypertension
CPT/HCPCS: 93005; 99284; 96360; 36415; 87040; 87086; 82962; 83690; 85025; 85610; 80053; 81001; 82803; 83605; 71046; 93010; J3490; J7030

== ENCOUNTER 2018-10-27 13:47 | Emergency (ER) | payer OTHER, BC ==
[2018-10-27] MEDS ORDERED: ACETAMINOPHEN 325 MG TABLET PO ONE (14:47)
[2018-10-27] MEDS ORDERED: IBUPROFEN 600 MG TABLET PO ONE (14:47)
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
[2018-10-27] MEDS ORDERED: LIDOCAINE 5% (700 MG) TRANSDERMAL ADH..PATCH TP ONE (15:49)
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
[2018-10-27 16:04] VITALS: BP 134/79
== END 2018-10-27 16:04 | disposition home or self-care (01) ==
LOC: ER 13:47
DX: M54.6 Pain in thoracic spine (principal); M54.5 Low back pain; V43.52XA Car driver injured in collision with other type car in traffic accident, initial encounter; I10 Essential (primary) hypertension; Z79.899 Other long term (current) drug therapy
CPT/HCPCS: 72070; 72131; 99284

== ENCOUNTER → 2018-12-11 | Outpatient (CLI) | payer BC ==
[2018-12-11 12:43] LABS: ABSOLUTE EOSINOPHILS # (AUTO) 0.1 10^3/uL (0.0-0.6); ABSOLUTE LYMPHOCYTES (AUTO) 1.7 10^3/uL (0.5-4.7); ABSOLUTE MONOCYTES (AUTO) 0.4 10^3/uL (0.1-1.4); ABSOLUTE NEUT (AUTO) 1.8 10^3/uL (1.7-8.2); BASOPHILS % (AUTO) 0.9 % (0-2); EOSINOPHILS % (AUTO) 1.6 % (0-6); HEMATOCRIT 41.8 % (36.0-47.0); HEMOGLOBIN 14.3 g/dL (12.0-15.5); LYMPHOCYTES % (AUTO) 43.1 % (13-45); MEAN CORPUSCULAR HEMOGLOBIN 29.8 pg (27.0-33.4); MEAN CORPUSCULAR HGB CONC 34.2 g/dL (32.0-36.0); MEAN CORPUSCULAR VOLUME 87 fl (80-97); MONOCYTES % (AUTO) 9.3 % (3-13); PLATELET COUNT 194 10^3/uL (150-450); RED BLOOD COUNT 4.78 10^6/uL (3.72-5.28); RED CELL DISTRIBUTION WIDTH 14.4 % (11.5-14.0); SEGMENTED NEUTROPHILS % (AUTO) 45.1 % (42-78); TOTAL CELLS COUNTED % (AUTO) 100 %; WHITE BLOOD COUNT 4.1 10^3/uL (4.0-10.5)
[2018-12-11 12:50] LABS: APPEARANCE,URINE CLOUDY; BILIRUBIN,URINE NEGATIVE (NEGATIVE); COLOR,URINE YELLOW; GLUCOSE, URINE NEGATIVE (NEGATIVE); KETONES,URINE NEGATIVE (NEGATIVE); LEUKOCYTE ESTERASE,URINE SMALL (NEGATIVE); NITRITE,URINE NEGATIVE (NEGATIVE); PROTEIN,URINE NEGATIVE (NEGATIVE); URINE SPECIFIC GRAVITY 1.021; UROBILINOGEN,URINE NEGATIVE mg/dL (<2.0)
[2018-12-11 13:04] LABS: ALANINE AMINOTRANSFERASE 20 U/L (9-52); ALBUMIN 4.9 g/dL (3.5-5.0); ALKALINE PHOSPHATASE 122 U/L (38-126); ANION GAP 11 (5-19); ASPARTATE AMINO TRANSFERASE 23 U/L (14-36); BILIRUBIN,DIRECT 0.3 mg/dL (0.0-0.4); BILIRUBIN,TOTAL 0.7 mg/dL (0.2-1.3); BLOOD UREA NITROGEN 16 mg/dL (7-20); CALCIUM 10.4 mg/dL (8.4-10.2); CARBON DIOXIDE 30 mmol/L (22-30); CHLORIDE 100 mmol/L (98-107); CHOLESTEROL 299.15 mg/dL (0-200); GLUCOSE 92 mg/dL (75-110); POTASSIUM 4.3 mmol/L (3.6-5.0); SODIUM 140.8 mmol/L (137-145); TOTAL PROTEIN 7.6 g/dL (6.3-8.2); TRIGLYCERIDES 76 mg/dL (<150); URIC ACID 4.9 mg/dL (2.5-7.5)
[2018-12-11 13:18] LABS: DIRECT LDL 186 mg/dL (<100)
[2018-12-11 13:23] LABS: C-REACTIVE PROTEIN < 5.0 mg/L (<10.0)
[2018-12-11 13:34] LABS: ERYTHROCYTE SEDIMENTATION RATE 24 mm/hr (0-30)
[2018-12-11 13:49] LABS: FREE T4 (FREE THYROXINE) 1.47 ng/dL (0.78-2.19)
[2018-12-11 14:03] LABS: THYROID STIMULATING HORMONE 0.53 uIU/mL (0.47-4.68)
== END ==
LOC: OD 11:44
PROVIDERS: ATTEND Internal Medicine
DX: M15.8 Other polyosteoarthritis (principal); I10 Essential (primary) hypertension
CPT/HCPCS: 36415; 80053; 80061; 81001; 84439; 84443; 84550; 85025; 85652; 86140; 86200; 86430

== ENCOUNTER → 2019-09-28 | Outpatient (CLI) | payer BC ==
[2019-09-28 10:53] LABS: ABSOLUTE BASOPHILS # (AUTO) 0.1 10^3/uL (0.0-0.2); ABSOLUTE EOSINOPHILS # (AUTO) 0.1 10^3/uL (0.0-0.6); ABSOLUTE LYMPHOCYTES (AUTO) 2.4 10^3/uL (0.5-4.7); ABSOLUTE MONOCYTES (AUTO) 0.5 10^3/uL (0.1-1.4); ABSOLUTE NEUT (AUTO) 2.2 10^3/uL (1.7-8.2); BASOPHILS % (AUTO) 1.1 % (0-2); EOSINOPHILS % (AUTO) 1.6 % (0-6); HEMATOCRIT 40.8 % (36.0-47.0); HEMOGLOBIN 14.6 g/dL (12.0-15.5); LYMPHOCYTES % (AUTO) 45.6 % (13-45); MEAN CORPUSCULAR HEMOGLOBIN 31.1 pg (27.0-33.4); MEAN CORPUSCULAR HGB CONC 35.8 g/dL (32.0-36.0); MEAN CORPUSCULAR VOLUME 87 fl (80-97); MONOCYTES % (AUTO) 9.4 % (3-13); PLATELET COUNT 208 10^3/uL (150-450); RED BLOOD COUNT 4.69 10^6/uL (3.72-5.28); RED CELL DISTRIBUTION WIDTH 14.1 % (11.5-14.0); SEGMENTED NEUTROPHILS % (AUTO) 42.3 % (42-78); TOTAL CELLS COUNTED % (AUTO) 100 %; WHITE BLOOD COUNT 5.2 10^3/uL (4.0-10.5)
[2019-09-28 11:00] LABS: APPEARANCE,URINE SLIGHTLY-CLOUDY; BILIRUBIN,URINE NEGATIVE (NEGATIVE); COLOR,URINE YELLOW; GLUCOSE, URINE NEGATIVE (NEGATIVE); KETONES,URINE NEGATIVE (NEGATIVE); LEUKOCYTE ESTERASE,URINE TRACE (NEGATIVE); NITRITE,URINE NEGATIVE (NEGATIVE); PROTEIN,URINE NEGATIVE (NEGATIVE); URINE SPECIFIC GRAVITY 1.019; UROBILINOGEN,URINE NEGATIVE mg/dL (<2.0)
[2019-09-28 11:11] LABS: ALBUMIN 4.6 g/dL (3.5-5.0); ALKALINE PHOSPHATASE 120 U/L (38-126); ANION GAP 12 (5-19); ASPARTATE AMINO TRANSFERASE 24 U/L (14-36); BILIRUBIN,DIRECT 0.3 mg/dL (0.0-0.4); BILIRUBIN,TOTAL 1.1 mg/dL (0.2-1.3); BLOOD UREA NITROGEN 15 mg/dL (7-20); CALCIUM 10.1 mg/dL (8.4-10.2); CARBON DIOXIDE 27 mmol/L (22-30); CHLORIDE 100 mmol/L (98-107); GLUCOSE 92 mg/dL (75-110); POTASSIUM 3.9 mmol/L (3.6-5.0); TRIGLYCERIDES 82 mg/dL (<150); URIC ACID 5.4 mg/dL (2.5-7.5)
[2019-09-28 11:23] LABS: DIRECT LDL 222 mg/dL (<100)
[2019-09-28 11:27] LABS: FREE T4 (FREE THYROXINE) 1.39 ng/dL (0.78-2.19)
[2019-09-28 11:41] LABS: THYROID STIMULATING HORMONE 2.41 uIU/mL (0.47-4.68)
[2019-09-30 04:36] LABS: CREATININE URINE 235.1 mg/dL (Not Estab.)
== END ==
LOC: OD 09:44
PROVIDERS: ATTEND Internal Medicine
DX: I10 Essential (primary) hypertension (principal)
CPT/HCPCS: 36415; 80053; 80061; 81001; 82043; 82570; 84439; 84443; 84550; 85025

== ENCOUNTER → 2020-01-14 | Outpatient (CLI) | payer BC, MEDICAID ==
[2020-01-14 13:01] VITALS: BP 122/68
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
== END ==
LOC: RDC 12:21
PROVIDERS: ATTEND Nurse Practitioner Family
DX: Z20.828 Contact with and (suspected) exposure to other viral communicable diseases (principal); R05 Cough; M79.10 Myalgia, unspecified site; I10 Essential (primary) hypertension; M06.9 Rheumatoid arthritis, unspecified; Z88.6 Allergy status to analgesic agent; Z87.891 Personal history of nicotine dependence
CPT/HCPCS: 87635; C9803; 99201; 99211